=== PATIENT | female | born 1960 | race Caucasian/White ===

== ENCOUNTER 2016-11-10 09:44 | Outpatient (CLI) | payer SELFPAY | END 2016-11-10 09:45 | disposition home or self-care (01) | LOC: LAB 09:44 | DX: Z01.89 Encounter for other specified special examinations (principal) | CPT/HCPCS: 36415 ==

== ENCOUNTER 2017-06-09 14:07 | Outpatient (CLI) | payer OTHER ==
--- NOTE | 2017-06-09 17:56 | Ultrasound Report ---
RIGHT BREAST ULTRASOUND: 06/09/2017 CLINICAL INDICATION: Palpable abnormality right breast. TECHNIQUE: Real-time scanning was performed with renewals representative static images obtained. FINDINGS: Ultrasound of the palpable abnormality identified by the patient was performed. No discrete solid or cystic mass is identified. Incidental note is made of the punctate calcifications noted on mammogram. No associated mass is identified. No sonographically suspicious findings are seen. IMPRESSION: BENIGN FINDINGS. RECOMMENDATION: Routine annual screening unless otherwise clinically indicated. BIRADS category 2 benign findings. TD: 06/09/2017 17:50
--- NOTE | 2017-06-09 17:56 | Mammography Report ---
DIGITAL DIAGNOSTIC BILATERAL MAMMOGRAM: 06/09/2017 CLINICAL INDICATION: Palpable abnormality right outer breast. COMPARISON: 03/04/2016, 11/05/2014, 10/23/2012, 05/07/2011, 03/30/2010. TECHNIQUE: Bilateral CC, laterally exaggerated CC, MLO views, right true lateral view. A marker was placed at the site of palpable abnormality identified by the patient. FINDINGS: The breasts again demonstrate extremely dense parenchyma, limiting the sensitivity of mammography. Punctate, typically benign calcifications are stable in the right outer breast. No mammographic abnormality is appreciated at the site of palpable abnormality identified by the patient in the right lateral breast. Please also refer to right breast ultrasound of the same day. IMPRESSION: BENIGN FINDINGS. RECOMMENDATION: Routine annual screening unless otherwise clinically indicated. BIRADS category 2 benign findings. STANDARD QUALIFYING STATEMENTS 1. This examination was reviewed with the aid of Computed-Aided Detection (CAD) . 2. A negative or benign imaging report should not delay biopsy if clinically suspicious findings are present. Consider surgical consultation if warranted. More than 5 % of cancers are not identified by imaging. 3. Dense breasts may obscure an underlying neoplasm. TD: 06/09/2017 17:54 [email or web address]
== END 2017-06-09 14:08 | disposition home or self-care (01) ==
LOC: DI 14:07
PROVIDERS: ATTEND Internal Medicine
DX: R92.8 Other abnormal and inconclusive findings on diagnostic imaging of breast (principal)
CPT/HCPCS: 76642; 77066

== ENCOUNTER 2017-09-08 18:11 | Emergency (ER) | payer OTHER ==
--- NOTE | 2017-09-08 20:08 | XRAY Preliminary Report ---
Exam: XR HAND 3 VIEW LT IMPRESSION: Mildly displaced and angulated oblique fracture at the junction of the base and shaft of the proximal phalanx of the left fifth finger. [facility] SITE ID: [id number]
--- NOTE | 2017-09-08 20:08 | XRAY Report ---
EXAM: LEFT HAND RADIOGRAPHY EXAM DATE: 09/08/2017 07:49 PM. CLINICAL HISTORY: Hand injury. Fall, left fifth digit and metacarpal pain. Unable to remove ring. COMPARISON: None. TECHNIQUE: 4 views. FINDINGS: Ring on the fourth proximal phalanx. Bones: Acute oblique fracture at the junction of the base and shaft of the proximal phalanx of the le ft fifth finger with mild 2 mm ulnar displacement and mild dorsal angulation. Fifth metacarpal is int act. No lucent or sclerotic lesions. Joints: Normal. No subluxations. Soft Tissues: Normal. No soft tissue swelling. IMPRESSION: Mildly displaced and angulated oblique fracture at the junction of the base and shaft of the proximal phalanx of the left fifth finger. [facility] Referring Provider Line: [phone] SITE ID: [id number]
--- NOTE | 2017-09-08 20:45 | ED Physician Documentation ---
PD HPI UPPER EXT INJURY - Stated complaint Stated Complaint: Gayla GALVAN INJ - Chief complaint Chief Complaint: Ext Problem - History obtained from History obtained from: Patient - History of Present Illness Location: Left, Finger Type of injury: Fall Where injury occurred: Park Timing - details: Abrupt onset, Still present Worsened by: Moving, Palpating Similar symptoms before: Has not had sx before Recently seen: Not recently seen - Additonal information Additional information: patient is a 57 year old female with a history of parkinson's disease who is presenting to the emergency department for finger injury. patient was playing tennis and tripped on her feet and landed awkwardly on her hand injuring her fifth digit. 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 : None HEENT: None Psych: None Musculoskeletal: None Derm: None Other Past Medical History: [place] - Past Surgical History Past Surgical History: Yes - Present Medications Home Medications: Ambulatory Orders Medication Instructions Recorded Confirmed Carbidopa/Levodopa [Carbidopa-Levo 09/08/17 ER 25-100 Tab] Carbidopa/Levodopa [Carbidopa-Levo 09/08/17 ER 50-200 Tab] Carbidopa/Levodopa [Rytary ER 09/08/17 23.75 mg-95 mg Cap] Pramipexole [Mirapex] 09/08/17 Rasagiline [Azilect] 0.5 09/08/17 - Allergies Allergies/Adverse Reactions: Allergies Allergy/AdvReac Type Severity Reaction Status Date / Time prednisone Allergy Mild Anxiety Verified 09/08/17 18:35 - Social History Does the pt smoke?: No Smoking Status: Never smoker Does the pt drink ETOH?: No Does the pt have substance abuse?: No - Immunizations Immunizations are current?: Yes - POLST Patient has POLST: No PD ED PE NORMAL - Vitals Vital signs reviewed: Yes - General General: Alert and oriented X 3, No acute distress - HEENT HEENT: Atraumatic - Cardiac Cardiac: RRR - Respiratory Respiratory: No respiratory distress - Abdomen Abdomen: Non distended - Neuro Neuro: Alert and oriented X 3, Normal speech Eye Opening: Spontaneous PD ED PE EXPANDED - Extremities Extremities: Left finger(s) (tenderness, swelling and ecchymosis of base of 5th digit on left hand) Results - Vitals Vitals: Vital Signs - 24 hr 09/08/17 18:29 Temperature 36.9 C Heart Rate 60 Respiratory 15 Rate Blood Pressure 120/69 O2 Saturation 98 Oxygen O2 Source Room air - Rads (name of study) hand x-ray Radiology: Final report received (fracture, mildly displaced 5th digit left hand ) PD MEDICAL DECISION MAKING - ED course Complexity details: reviewed old records, reviewed results, re-evaluated patient , considered differential, d/w patient ED course: Patient was seen and examined at bedside. Patient had already been sent to x- ray. Films were reviewed and consistent with a mildly displaced fracture. Patient was placed in a splint by me. Patient required no further work up and was stable for discharge with outpatient follow up. Departure - Departure Disposition: Home, Self Care Clinical Impression: Finger fracture, left Condition: Good Instructions: ED Fx Finger Closed Follow-Up: Ti Rolle MD [Primary Care Provider] - Within 3 Days Shlomo Benito MD [Provider Admit Priv/Credential] - Comments: Your symptoms today are being caused by a finger fracture. It has been splinted and taped and you can wear that for comfort. You should ice your hand at least 4 times a day. You can take motrin and tylenol for pain. You can follow up with your doctor or doctor jang as needed. You may return to the emergency department at any time for new, worsening or uncontrollable symptoms.
[2017-09-08 21:08] VITALS: BP 118/90
== END 2017-09-08 21:01 | disposition home or self-care (01) ==
LOC: ED 18:11
DX: S62.617A Displaced fracture of proximal phalanx of left little finger, initial encounter for closed fracture (principal); W17.89XA Other fall from one level to another, initial encounter; Y92.830 Public park as the place of occurrence of the external cause; G20 Parkinson's disease
CPT/HCPCS: 29130; 99283

== ENCOUNTER 2018-06-13 14:37 | Outpatient (CLI) | payer OTHER ==
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
== END 2018-06-13 14:38 | disposition home or self-care (01) ==
LOC: DI 14:37
PROVIDERS: ATTEND Nurse Practitioner Primary Care
DX: Z12.31 Encounter for screening mammogram for malignant neoplasm of breast (principal)
CPT/HCPCS: 77067

== ENCOUNTER 2018-06-13 14:38 | Outpatient (CLI) | payer OTHER ==
--- NOTE | 2018-06-15 08:59 | DEXA Report ---
Reason: SCREENING FOR OSTEOPOROSIS, POSTMENOPAUSAL Procedure Date: 06/13/2018 Accession Number: [id number] / [id number] Procedure: DEX - Dexa Spine and/or Hip CPT Code: FULL RESULT: EXAM: Dexa Spine and/or Hip DATE: 06/13/2018 3:18 PM CLINICAL HISTORY: SCREENING FOR OSTEOPOROSIS, POSTMENOPAUSAL TECHNIQUE: Dual energy x-ray absorptiometry (DXA) was performed on a [employer] System. Regions measured are the AP Spine, femoral neck, and if needed forearm. COMPARISON: None. In accordance with the International Society for Clinical Densitometry (ISCD) guidelines, data from previous exams may be reanalyzed using current recommendations and techniques. This is done to allow a more accurate basis for comparison with the current study. FINDINGS: The data for the lumbar spine is as follows: BMD (g/cm/cm) T-SCORE Z-SCORE REGION L1 0.812 -2.7 -1.2 L2 0.868 -2.8 -1.3 L3 0.939 -2.2 -0.7 L4 1.113 -0.7 0.7 TOTAL 0.948 -1.9 -0.5 NOTE: All evaluable vertebrae are used for classification The data for the hip is as follows: BMD (g/cm/cm) T-SCORE Z-SCORE REGION Neck 0.790 -1.8 -0.4 TOTAL 0.781 -1.8 -0.7 NOTE: The femoral neck or total proximal femur, whichever is lowest, is used for classification. IMPRESSION: THE WHO CLASSIFICATION BASED ON THE INTERNATIONAL REFERENCE STANDARD IS OSTEOPENIA. THE FRACTURE RISK IS INCREASED. RECOMMENDATION: Patients with diagnosis of osteoporosis or osteopenia should have regular bone mineral density assessment. For those eligible for Medicare, routine testing is allowed once every 2 years. Testing frequency can be increased for patients who have rapidly progressing disease or for those who are receiving medical therapy to restore bone mass. COMMENT: World Health Organization (WHO) definitions for osteoporosis and osteopenia: NORMAL BMD: T-score at -1.0 or higher, fracture risk is low OSTEOPENIA BMD: T-score between -1.0 and -2.5, fracture risk is increased. OSTEOPOROSIS BMD: T-score at -2.5 or lower, fracture risk is high. National Osteoporosis Foundation recommends: 1. Obtain adequate dietary calcium (at least 1200 mg per day) and vitamin D (400-800 international units per day). 2. Participate, as appropriate, in regular weightbearing and muscle-strengthening exercise. 3. Avoid tobacco use and reduce alcohol and caffeine intake. 4. For more detailed information see the website at www.NOF.org.
== END 2018-06-13 14:39 | disposition home or self-care (01) ==
LOC: DI 14:38
PROVIDERS: ATTEND Nurse Practitioner Primary Care
DX: Z13.820 Encounter for screening for osteoporosis (principal); M85.89 Other specified disorders of bone density and structure, multiple sites; Z78.0 Asymptomatic menopausal state
CPT/HCPCS: 77080

== ENCOUNTER 2019-05-09 14:05 | Outpatient (CLI) | payer OTHER | END 2019-05-09 14:06 | disposition home or self-care (01) | LOC: NS 14:05 | PROVIDERS: ATTEND Family Medicine | DX: Z71.3 Dietary counseling and surveillance (principal); Z79.899 Other long term (current) drug therapy; M85.80 Other specified disorders of bone density and structure, unspecified site; G20 Parkinson's disease | CPT/HCPCS: 97802 ==

== ENCOUNTER 2019-08-14 08:00 | Outpatient (CLI) | payer OTHER ==
[2019-08-14 13:39] LABS: BASOPHILS % (AUTO) 0.6 %; EOSINOPHILS # (AUTO) 0.1 10^3/uL (0.0-0.7); EOSINOPHILS % (AUTO) 2.5 %; HGB - HEMOGLOBIN 13.3 g/dL (12.0-16.0); LYMPHOCYTES # (AUTO) 1.7 10^3/uL (1.5-3.5); LYMPHOCYTES % (AUTO) 46.5 %; MEAN CORPUSCULAR HEMOGLOBIN 30.3 pg (27.0-31.0); MEAN CORPUSCULAR HGB CONC 31.9 g/dL (32.0-36.0); MEAN PLATELET VOLUME 11.4 fL (7.9-10.8); MONOCYTES # (AUTO) 0.3 10^3/uL (0.0-1.0); MONOCYTES % (AUTO) 7.6 %; NEUTROPHILS # (AUTO) 1.5 10^3/uL (1.5-6.6); NEUTROPHILS % (AUTO) 42.8 %; PLT - PLATELET COUNT 196 10^3/uL (130-450); RED BLOOD COUNT 4.39 10^6/uL (4.20-5.40); RED CELL DISTRIBUTION WIDTH 12.9 % (12.0-15.0); WHITE BLOOD COUNT 3.6 x10^3/uL (4.8-10.8)
[2019-08-14 13:44] LABS: HB2 TOTAL 13.7 g/dL; HEMOGLOBIN A1C 0.57 g/dL
[2019-08-14 13:47] LABS: ALBUMIN 4.4 g/dL (3.2-5.5); ALBUMIN/GLOBULIN RATIO 1.9 (1.0-2.2); ALKALINE PHOSPHATASE 96 IU/L (42-121); ALT ALANINE AMINOTRANSFERASE < 10 IU/L (10-60); AST ASPARTATE AMINOTRANSFERASE 18 IU/L (10-42); BILIRUBIN,TOTAL 0.9 mg/dL (0.2-1.0); BUN - BLOOD UREA NITROGEN 17 mg/dL (6-20); CARBON DIOXIDE - CO2 27 mmol/L (21-32); CHLORIDE 104 mmol/L (101-111); CHOL/HDL RATIO 2.8 (<4.4); CHOLESTEROL 164 mg/dL; CREATININE 0.6 mg/dL (0.4-1.0); GLUCOSE 93 mg/dL (70-100); HDL CHOLESTEROL 59 mg/dL; LDL CHOLESTEROL,CALCULATED 97 mg/dL; LDL/HDL RATIO 1.6 (<4.4); SODIUM 138 mmol/L (135-145); TOTAL PROTEIN 6.7 g/dL (6.7-8.2); VLDL CHOLESTEROL 8 mg/dL
== END 2019-08-14 23:59 | disposition home or self-care (01) ==
LOC: LAB.WCP 08:00
PROVIDERS: ATTEND Nurse Practitioner
DX: E83.41 Hypermagnesemia (principal); R73.01 Impaired fasting glucose; E74.8 Other specified disorders of carbohydrate metabolism; Z13.29 Encounter for screening for other suspected endocrine disorder; G20 Parkinson's disease
CPT/HCPCS: 36415; 80053; 80061; 83036; 83721; 84443; 85025

== ENCOUNTER 2019-10-08 19:06 | Emergency (ER) | payer MEDICARE, OTHER ==
[2019-10-08] MEDS ORDERED: TETANUS/DIPHTHERIA/PERTUSSIS 0.5 ML SYRINGE IM ONE (19:31)
[2019-10-08] MEDS ORDERED: LIDOCAINE PATCH 5% TOP STA (19:31)
[2019-10-08] MEDS ORDERED: BACITRACIN ZINC OINT 1 PACKET TOP STA (19:32)
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
--- NOTE | 2019-10-08 20:17 | XRAY Report ---
PROCEDURE: Ribs w/PA Chest RT INDICATIONS: rib inj TECHNIQUE: 3 views of the right ribs were acquired, along with a single view chest. COMPARISON: None FINDINGS: Surgical changes and devices: None. Bones and chest wall: There is a minimally displaced lateral right seventh rib fracture. No suspici ous bony lesions. Overlying soft tissues appear unremarkable. Lungs and pleura: No pleural effusions or pneumothorax. Lungs appear clear. Mediastinum: Mediastinal contours appear normal. Heart size is normal. IMPRESSION: Minimally displaced lateral right seventh rib fracture. Reviewed by: Josi Caba MD on 10/08/2019 8:16 PM PDT Approved by: Josi Caba MD on 10/08/2019 8:16 PM PDT Station ID: [id number]
[2019-10-08 20:38] VITALS: BP 130/77
== END 2019-10-08 20:37 | disposition home or self-care (01) ==
LOC: ED 19:06
DX: S22.31XA Fracture of one rib, right side, initial encounter for closed fracture (principal); S60.512A Abrasion of left hand, initial encounter; S60.511A Abrasion of right hand, initial encounter; S50.811A Abrasion of right forearm, initial encounter; V18.0XXA Pedal cycle driver injured in noncollision transport accident in nontraffic accident, initial encounter; Y93.55 Activity, bike riding; Z23 Encounter for immunization; G20 Parkinson's disease
CPT/HCPCS: 71101; 90471; 90715; 99283; 99284; A9270

== ENCOUNTER 2020-02-05 13:45 | Outpatient (CLI) | payer MEDICARE, OTHER ==
--- NOTE | 2020-02-06 12:02 | Mammography Report ---
BILATERAL DIGITAL SCREENING MAMMOGRAM: 02/05/2020 CLINICAL: Family history of breast cancer. Routine screening. Comparison is made to exams dated: 06/13/2018 mammogram, 06/09/2017 mammogram, 03/04/2016 mammogram, a nd 06/09/2017 ultrasound - [facility]. The tissue of both breasts is extremely dens e, which lowers the sensitivity of mammography. No significant masses, calcifications, or other findings are seen in either breast. There has been no significant interval change. IMPRESSION: NEGATIVE There is no mammographic evidence of malignancy. A 1 year screening mammogram is recommended. This exam was interpreted at Station ID: [id number]. NOTE: For mammograms, a report in lay terms will be sent to the patient. Approximately 15% of breast malignancies will not be visualized mammographically. In the management of a palpable breast mass, a negative mammogram must not discourage biopsy of a clinically suspicious lesion. Electronically Signed By: Alan Anderson M.D. ar/penrad:02/05/2020 17:34:45 ACR BI-RADS Category 1: Negative 3341F PARENCHYMAL PATTERN: (VD) - The breast(s) demonstrate(s) extremely dense parenchyma, limiting the sen sitivity of mammography. BI-RADS CATEGORY: (1) - 1 RECOMMENDATION: (ANNUAL) - Recommend routine annual screening mammography. [id number] 1 year screening LATERALITY: (B)
== END 2020-02-05 13:46 | disposition home or self-care (01) ==
LOC: DI.N 13:45
PROVIDERS: ATTEND Nurse Practitioner
DX: Z12.31 Encounter for screening mammogram for malignant neoplasm of breast (principal); Z80.3 Family history of malignant neoplasm of breast
CPT/HCPCS: 77067

== ENCOUNTER 2021-02-03 11:22 | Outpatient (CLI) | payer MEDICARE ==
[2021-02-03 18:12] LABS: BASOPHILS % (AUTO) 0.9 %; EOSINOPHILS # (AUTO) 0.2 10^3/uL (0.0-0.7); HCT - HEMATOCRIT 43.7 % (37.0-47.0); HGB - HEMOGLOBIN 13.8 g/dL (12.0-16.0); MEAN CORPUSCULAR HEMOGLOBIN 30.5 pg (27.0-31.0); MEAN CORPUSCULAR HGB CONC 31.6 g/dL (32.0-36.0); MEAN CORPUSCULAR VOLUME 96.5 fL (81.0-99.0); MEAN PLATELET VOLUME 11.2 fL (7.9-10.8); MONOCYTES # (AUTO) 0.4 10^3/uL (0.0-1.0); MONOCYTES % (AUTO) 8.7 %; NEUTROPHILS # (AUTO) 1.9 10^3/uL (1.5-6.6); NEUTROPHILS % (AUTO) 42.2 %; PLT - PLATELET COUNT 222 10^3/uL (130-450); RED BLOOD COUNT 4.53 10^6/uL (4.20-5.40); RED CELL DISTRIBUTION WIDTH 13.1 % (12.0-15.0); WHITE BLOOD COUNT 4.5 x10^3/uL (4.8-10.8)
[2021-02-03 18:35] LABS: ALBUMIN 4.6 g/dL (3.2-5.5); ALBUMIN/GLOBULIN RATIO 1.8 (1.0-2.2); ALKALINE PHOSPHATASE 115 IU/L (42-121); ALT ALANINE AMINOTRANSFERASE < 10 IU/L (10-60); AST ASPARTATE AMINOTRANSFERASE 17 IU/L (10-42); BILIRUBIN,TOTAL 0.9 mg/dL (0.2-1.0); BUN - BLOOD UREA NITROGEN 19 mg/dL (6-20); CALCIUM 9.5 mg/dL (8.5-10.3); CARBON DIOXIDE - CO2 27 mmol/L (21-32); CHLORIDE 99 mmol/L (101-111); CHOL/HDL RATIO 2.6 (<4.4); CHOLESTEROL 177 mg/dL; CREATININE 0.7 mg/dL (0.4-1.0); GFR - MDRD 85 (>89); GLUCOSE 104 mg/dL (70-100); HDL CHOLESTEROL 69 mg/dL; LDL CHOLESTEROL,CALCULATED 89 mg/dL; LDL/HDL RATIO 1.3 (<4.4); POTASSIUM 4.1 mmol/L (3.5-5.0); SODIUM 134 mmol/L (135-145); TOTAL PROTEIN 7.1 g/dL (6.7-8.2); TRIGLYCERIDES 97 mg/dL; VLDL CHOLESTEROL 19 mg/dL
[2021-02-03 18:41] LABS: THYROID STIMULATING HORMONE 1.7 uIU/mL (0.34-5.60)
[2021-02-03 20:19] LABS: ESTIMATED AVERAGE GLUCOSE 128 mg/dL (70-100); HEMOGLOBIN A1c% 6.1 % (4.27-6.07)
== END 2021-02-03 11:23 | disposition home or self-care (01) ==
LOC: LAB.N 11:22
PROVIDERS: ATTEND Family Medicine
DX: Z00.00 Encounter for general adult medical examination without abnormal findings (principal)
CPT/HCPCS: 36415; 80053; 80061; 83036; 83721; 84443; 85025

== ENCOUNTER 2021-02-12 08:00 | Outpatient (CLI) | payer MEDICARE ==
[2021-02-23 19:54] LABS: FECAL OCCULT BLOOD (FIT) NEGATIVE (NEGATIVE)
== END 2021-02-12 23:59 | disposition home or self-care (01) ==
LOC: LAB.R 08:00
PROVIDERS: ATTEND Family Medicine
DX: Z12.11 Encounter for screening for malignant neoplasm of colon (principal)
CPT/HCPCS: 82274

== ENCOUNTER 2021-03-26 15:43 | Outpatient (CLI) | payer MEDICARE ==
--- NOTE | 2021-03-26 16:57 | XRAY Report ---
PROCEDURE: Chest 2 View X-Ray INDICATIONS: COUGH / PARKINSONS TECHNIQUE: 2 view(s) of the chest. COMPARISON: CXR 08/08/2015. FINDINGS: Surgical changes and devices: None. Lungs and pleura: No pleural effusions or pneumothorax. Lungs are clear. Mediastinum: Mediastinal contours are normal. Heart size is normal. Bones and chest wall: No suspicious bony abnormalities. Soft tissues appear unremarkable. IMPRESSION: No acute cardiopulmonary abnormality. Reviewed by: Wolf Galvan MD on 03/26/2021 4:56 PM PST Approved by: Wolf Galvan MD on 03/26/2021 4:56 PM [facility] Station ID: [id number]
--- NOTE | 2021-03-26 22:10 | XRAY Report ---
PROCEDURE: Wrist 3 View LT INDICATIONS: LEFT WRIST JOINT PAIN TECHNIQUE: 3 views of the wrist were acquired. COMPARISON: None FINDINGS: Bones: Acute slightly impacted fracture through distal radial shaft is seen without significant displ acement or angulation of fracture site. Old ulnar styloid fracture is seen with well-corticated fragm ent. Mild wrist joint osteoarthritic changes are seen. No suspicious bony lesions. Scaphoid view: Scaphoid is intact. Soft tissues: No suspicious soft tissue calcifications. IMPRESSION: Acute slightly impacted distal radial shaft fracture as above. Wrist joint osteoarthritis. No disloca tion. Reviewed by: Blaise Tran MD on 03/26/2021 10:08 PM PST Approved by: Blaise Tran MD on 03/26/2021 10:08 PM PST Station ID: [id number]
== END 2021-03-26 15:44 | disposition home or self-care (01) ==
LOC: DI.N 15:43
PROVIDERS: ATTEND Family Medicine
DX: R05.9 Cough, unspecified (principal); G20 Parkinson's disease; S52.302A Unspecified fracture of shaft of left radius, initial encounter for closed fracture; M19.032 Primary osteoarthritis, left wrist

== ENCOUNTER 2021-04-28 13:16 | Outpatient (CLI) | payer MEDICARE ==
--- NOTE | 2021-04-28 16:26 | XRAY Report ---
PROCEDURE: Wrist 3 View RT INDICATIONS: WRIST FX F/U TECHNIQUE: 3 views of the wrist were acquired. COMPARISON: X-ray wrist 03/26/2021 FINDINGS: Bones: There is a comminuted, impacted distal radial fracture without gross intra-articular extension . There has been interval sclerosis consistent with healing although fracture lucencies persist. Ther e is slight dorsal displacement of the distal fragment, new compared to prior exam Soft tissues: No suspicious soft tissue calcifications. IMPRESSION: Interval healing with new slight dorsal displacement of the distal fragment of distal radial fracture , Reviewed by: Josi Caba MD on 04/28/2021 4:25 PM PST Approved by: Josi Caba MD on 04/28/2021 4:25 PM PST Station ID: [id number]
== END 2021-04-28 13:17 | disposition home or self-care (01) ==
LOC: DI.WOS 13:16
PROVIDERS: ATTEND Orthopaedic Surgery
DX: S52.531D Colles' fracture of right radius, subsequent encounter for closed fracture with routine healing (principal)

== ENCOUNTER 2021-05-19 14:17 | Outpatient (CLI) | payer BC ==
--- NOTE | 2021-05-19 17:28 | XRAY Report ---
PROCEDURE: Wrist 3 View RT INDICATIONS: F/U RIGHT WRIST FX TECHNIQUE: 3 views of the wrist were acquired. COMPARISON: X-ray of the right wrist, 04/28/2021 and 03/26/2021. FINDINGS: Bones: There is a healing fracture of the distal radial metaphysis is mild impaction. The alignment i s stable. Old ulnar styloid fracture is again noted. No suspicious bony lesions. Soft tissues: No suspicious soft tissue calcifications. IMPRESSION: Healing distal radial metaphyseal fracture with stable alignment. Reviewed by: Faustina Sharpe MD on 05/19/2021 5:26 PM PST Approved by: Faustina Sharpe MD on 05/19/2021 5:26 PM PST Station ID: [id number]
== END 2021-05-19 14:18 | disposition home or self-care (01) ==
LOC: DI.WOS 14:17
PROVIDERS: ATTEND Physician Assistant
DX: S52.531D Colles' fracture of right radius, subsequent encounter for closed fracture with routine healing (principal)

== ENCOUNTER 2021-07-02 10:23 | Outpatient (CLI) | payer BC ==
--- NOTE | 2021-07-03 10:12 | Mammography Report ---
BILATERAL DIGITAL SCREENING MAMMOGRAM 3D/2D: 07/02/2021 CLINICAL: Family history of breast cancer. Routine screening. Comparison is made to exams dated: 02/05/2020 mammogram, 06/13/2018 mammogram, and 06/09/2017 mammogra m - [facility]. The tissue of both breasts is extremely dense, which lowers the se nsitivity of mammography. No significant masses, calcifications, or other findings are seen in either breast. There has been no significant interval change. IMPRESSION: NEGATIVE There is no mammographic evidence of malignancy. A 1 year screening mammogram is recommended. This exam was interpreted at Station ID: [id number]. NOTE: For mammograms, a report in lay terms will be sent to the patient. Approximately 15% of breast malignancies will not be visualized mammographically. In the management of a palpable breast mass, a negative mammogram must not discourage biopsy of a clinically suspicious lesion. Electronically Signed By: Alan Anderson M.D. ar/penrad:07/02/2021 11:13:00 ACR BI-RADS Category 1: Negative 3341F PARENCHYMAL PATTERN: (VD) - The breast(s) demonstrate(s) extremely dense parenchyma, limiting the sen sitivity of mammography. BI-RADS CATEGORY: (1) - 1 RECOMMENDATION: (ANNUAL) - Recommend routine annual screening mammography. [id number] 1 year screening LATERALITY: (B)
== END 2021-07-02 10:24 | disposition home or self-care (01) ==
LOC: DI.N 10:23
DX: Z12.31 Encounter for screening mammogram for malignant neoplasm of breast (principal); Z80.3 Family history of malignant neoplasm of breast

== ENCOUNTER 2021-08-17 06:00 | Outpatient (CLI) | payer MEDICARE ==
--- NOTE | 2021-08-17 15:10 | XRAY Report ---
PROCEDURE: Wrist 3 View RT INDICATIONS: WRIST FRACTURE TECHNIQUE: 3 views of the wrist were acquired. COMPARISON: Right wrist radiographs 05/19/2021, 04/28/2021, 03/26/2021. FINDINGS: Bones: Distal radius fracture line is no longer seen. There is essentially anatomic alignment. No dis location. Ulnar styloid fracture. No suspicious bony lesions. Soft tissues: No suspicious soft tissue calcifications. IMPRESSION: Distal radius fracture line is no longer seen. This is consistent with healing. Prior ulnar styloid fracture. Reviewed by: Wolf Galvan MD on 08/17/2021 3:08 PM PDT Approved by: Wolf Galavn MD on 08/17/2021 3:08 PM PDT Station ID: [id number]
== END 2021-08-17 23:59 | disposition home or self-care (01) ==
LOC: DI.WOS 06:00
PROVIDERS: ATTEND Physician Assistant
DX: S52.531D Colles' fracture of right radius, subsequent encounter for closed fracture with routine healing (principal)

== ENCOUNTER 2021-11-17 15:36 | Emergency (ER) | payer MEDICARE ==
[2021-11-17 15:51] VITALS: BP 127/89
--- NOTE | 2021-11-17 16:51 | XRAY Report ---
PROCEDURE: Hand 3 View LT INDICATIONS: Possible fracture TECHNIQUE: 3 views of the hand(s) acquired. COMPARISON: None FINDINGS: Bones: No fractures or dislocations. Mild to moderate osteoarthritic changes are noted throughout monk nd and wrist joints. No gross bony erosive changes. No suspicious bony lesions. Soft tissues: No suspicious soft tissue calcifications. IMPRESSION: No left hand fracture or dislocation. 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 No d efinite bony erosive changes. Reviewed by: Blaise Ocampo MD on 11/17/2021 3:50 PM [facility] Approved by: Blaise Ocampo MD on 11/17/2021 3:50 PM [facility] Station ID: [id number]
--- NOTE | 2021-11-17 16:57 | ED Physician Documentation ---
PD HPI UPPER EXT INJURY - Stated complaint Stated Complaint: HAND LAC - Chief complaint Chief Complaint: Laceration - History obtained from History obtained from: Patient - History of Present Illness Location: Left - Additonal information Additional information: 61-year-old female history of Parkinson's presents for evaluation of hand injury that occurred yesterday. Patient states that she was at home when she slipped, landing on her hand. She states that her fingers were bent out of place, and she was able to pull them back into place. Today her fingers are more swollen and she initially went to a urgent care clinic, however due to the extensive swelling in her ring and middle finger she was referred to the ER. Unknown last tetanus shot. Incident happened at approximately 1500 yesterday. Did not hit head. 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 : Incontinence, Nocturia, Kidney stones HEENT: None Psych: None Musculoskeletal: None Derm: None - Past Surgical History Past Surgical History: Yes General: Other - Present Medications Home Medications: Ambulatory Orders Medication Instructions Recorded Confirmed Carbidopa/Levodopa [Carbidopa-Levo 1 each PO DAILY PM PRN 09/08/17 02/21/18 ER 50-200 Tab] Carbidopa/Levodopa [Rytary ER 1 - 4 each PO DAILY 09/08/17 02/21/18 23.75 mg-95 mg Cap] Pramipexole [Mirapex] 0.75 mg PO DAILY 09/08/17 02/21/18 Rasagiline [Azilect] 0.75 mg PO DAILY 09/08/17 02/21/18 Carbidopa/Levodopa 1 tab PO Q1HR 02/15/18 02/21/18 [Carbidopa-Levodopa 25-100 Tab] Zolpidem [Ambien] 5 mg PO HS 02/21/18 02/21/18 Bacitracin Zinc Oint 1 applic TOP BID #1 tube 06/22/20 Lidocaine Patch 5% [Lidoderm Patch] 1 patch TOP DAILY PRN #10 patch 10/08/19 - Allergies Allergies/Adverse Reactions: Allergies Allergy/AdvReac Type Severity Reaction Status Date / Time prednisone Allergy Mild Anxiety Verified 11/17/21 15:50 - Social History Does the pt smoke?: No Smoking Status: Never smoker Does the pt drink ETOH?: No Does the pt have substance abuse?: No - Immunizations Immunizations are current?: Yes - POLST Patient has POLST: No PD ED PE NORMAL - Vitals Vital signs reviewed: Yes - General General: Alert and oriented X 3, No acute distress, Well developed/nourished - HEENT HEENT: Atraumatic, PERRL, EOMI, Ears normal, Moist mucous membranes, Pharynx benign - Neck Neck: Supple, no meningeal sign, No bony TTP, C-Spine cleared by NEXUS criteria - Cardiac Cardiac: RRR, No murmur, Strong equal pulses - Respiratory Respiratory: No respiratory distress, Clear bilaterally - Abdomen Abdomen: Soft, Non tender, Non distended - Back Back: No CVA TTP, No spinal TTP - Derm Derm: Normal color, Warm and dry - Extremities Extremities: Other (swelling L ring and middle finger. 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 Patient has swelling to her ring finger as well as a wedding ring in place. This wedding band was unable to be removed and so it was cut. Wound is greater than 24 hours old, will treat conservatively. It was irrigated by nursing staff and merle tape was applied to the fingers. Departure - Departure Disposition: 01 Home, Self Care Clinical Impression: Finger sprain, Finger laceration Condition: Stable Instructions: ED Laceration Small Superf No Sutr Comments: You are seen today for finger sprain of your middle and ring fingers. At this time there does not appear to be any fracture or dislocation present. You are being placed in merle tape, which should remain in place for several days. Take Tylenol and Motrin as needed for pain or swelling. Please apply ice as needed to your fingers for swelling. Your tetanus shot was last updated in 2019, you do not need an update today. Discharge Date/Time: 11/17/21 17:11
== END 2021-11-17 17:11 | disposition home or self-care (01) ==
LOC: ED 15:36
DX: S63.615A Unspecified sprain of left ring finger, initial encounter (principal); W01.0XXA Fall on same level from slipping, tripping and stumbling without subsequent striking against object, initial encounter
CPT/HCPCS: 99282; 99283

== ENCOUNTER 2022-03-30 13:58 | Outpatient (CLI) | payer MEDICARE ==
--- NOTE | 2022-03-30 18:55 | XRAY Report ---
PROCEDURE: Shoulder 3 View LT INDICATIONS: L SHOULDER PX TECHNIQUE: 3 views of the shoulder were acquired. COMPARISON: None. FINDINGS: Bones: Transverse fracture through the distal clavicle noted with impaction and slight remodeling of the fracture lines. Left lung apex clear. No pneumothorax. Glenohumeral joint unremarkable. Soft tissues: No suspicious soft tissue calcifications. IMPRESSION: Comminuted nondisplaced distal left clavicular fracture Reviewed by: Sriram Campbell MD on 03/30/2022 5:54 PM [place] Approved by: Sriram Campbell MD on 03/30/2022 5:54 PM AKST Station ID: [id number]
== END 2022-03-30 13:59 | disposition home or self-care (01) ==
LOC: DI.N 13:58
PROVIDERS: ATTEND Physician Assistant
DX: S42.032A Displaced fracture of lateral end of left clavicle, initial encounter for closed fracture (principal)

== ENCOUNTER 2023-07-06 16:46 | Emergency (ER) | payer MEDICARE ==
[2023-07-06 17:02] VITALS: BP 133/98
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
[2023-07-06 17:21] VITALS: O2SAT 96
--- NOTE | 2023-07-06 17:33 | XRAY Report ---
PROCEDURE: Shoulder 2+V LT INDICATIONS: fall 1 wk ago, pain and limited movement since TECHNIQUE: 3 views of the shoulder were acquired. COMPARISON: Left clavicle radiographs 06/11/2022, 05/07/2022. Left shoulder radiographs 04/08/2022. FINDINGS: Bones: Fracture at the lateral acromion. Mild this placement of the fracture fragment. Healed the di stal clavicle fracture. No dislocations. No suspicious bony lesions. Visualized ribs appear intact. Soft tissues: No suspicious soft tissue calcifications. The visualized lungs are within normal limi ts. IMPRESSION: Fracture at the lateral acromion. Reviewed by: Wolf Galvan MD on 07/06/2023 5:31 PM PDT Approved by: Wolf Galvan MD on 07/06/2023 5:31 PM PDT Station ID: [id number]
== END 2023-07-06 17:39 | disposition home or self-care (01) ==
LOC: ED 16:46
DX: S42.292A Other displaced fracture of upper end of left humerus, initial encounter for closed fracture (principal); V19.9XXA Pedal cyclist (driver) (passenger) injured in unspecified traffic accident, initial encounter; Y93.55 Activity, bike riding; Y92.828 Other wilderness area as the place of occurrence of the external cause; G20.C Parkinsonism, unspecified; Z79.899 Other long term (current) drug therapy
CPT/HCPCS: 99283; 99284

== ENCOUNTER 2023-12-03 09:30 | Emergency (ER) | payer MEDICARE ==
--- NOTE | 2023-12-03 10:06 | ED Physician Documentation ---
PD HPI LOWER EXT INJURY - Stated complaint Stated Complaint: GLF, LT LEG INJURY - Chief complaint Chief Complaint: Trauma Ext - History obtained from History obtained from: Patient - History of Present Illness PD HPI LOW EXT INJURY LOCATION: Left, Hip (and posterior aspect around SI area and ramus.) Type of injury: Fall (4 days ago, with twisting of left hip more than impact per se. Has had pain with ROM and pivoting walking. has Parkinsons with a lot of spasms baseline, and the current injury has precipitated more spasms in legs cassius.), Twist Where injury occurred: Home Timing - onset: How many days ago (4) Worsened by: Moving. 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 : Incontinence, Nocturia, Kidney stones HEENT: None Psych: None Musculoskeletal: None Derm: None - Past Surgical History Past Surgical History: Yes General: Other - Present Medications Home Medications: Ambulatory Orders Medication Instructions Recorded Confirmed Carbidopa/Levodopa [Carbidopa-Levo 1 each PO DAILY PM PRN 09/08/17 07/06/23 ER 50-200 Tab] Pramipexole [Mirapex] 0.75 mg PO DAILY 09/08/17 07/06/23 Carbidopa/Levodopa 1 tab PO Q1HR 02/15/18 07/06/23 [Carbidopa-Levodopa 25-100 Tab] Zolpidem [Ambien] 5 mg PO HS 02/21/18 07/06/23 amantadine HCL [Gocovri] 1 - 2 tab PO HS 07/06/23 07/06/23 HYDROcod/ACETAM 5/325 [[place] 5/325] 1 ea PO Q8H PRN #14 tablet 12/03/23 Lidocaine 4 % TP DAILY PRN #10 patch 12/03/23 Meloxicam [Mobic] 7.5 mg PO BID 10 Days #20 tablet 12/03/23 tiZANidine [Zanaflex] 4 mg PO Q8H PRN #25 tablet 12/03/23 - Allergies Allergies/Adverse Reactions: Allergies Allergy/AdvReac Type Severity Reaction Status Date / Time prednisone Allergy Mild Anxiety Verified 12/03/23 09:44 - Social History Does the pt smoke?: No Smoking Status: Never smoker Does the pt drink ETOH?: No Does the pt have substance abuse?: No - Immunizations Immunizations are current?: Yes - POLST Patient has POLST: No PD ED PE NORMAL - Vitals Vital signs reviewed: Yes - General General: Alert and oriented X 3, Well developed/nourished, Other (continual movement with choreoid type movements c/w Parkinsons. Left hip and SI/posterior pelvic area.) - Abdomen Abdomen: Soft, Non tender - Back Back: Other (pain with hip flexion against resistance mostly. And with regular flexion and external rotation.) - Derm Derm: Normal color, Warm and dry Results - Vitals Vitals: Vital Signs - 24 hr 12/03/23 12/03/23 09:44 12:12 Temperature 36.4 C L 36.4 C L Heart Rate 101 H 97 Respiratory 16 16 Rate Blood Pressure 135/92 H 135/89 H O2 Saturation 99 99 Oxygen O2 Source Room air - Rads (name of study) pelvic CT Relevant Findings:: Prelim report reviewed, EMP independent interpretation of te st (no noted fractures. ) PD Medical Decision Making - ED course Complexity details: reviewed results (no fractures. Presume myofascial and her psoas is suspicious given character of the pain. No hematoma seen by radioloty.), considered differential (pain in pelvis/posterior hip and not ball and socket it self. ), d/w patient Departure - Departure Disposition: 01 Home, Self Care Clinical Impression: Psoas muscle strain, Hip pain, acute Condition: Stable Record reviewed to determine appropriate education?: Yes Instructions: ED Sprain Hip Follow-Up: BLAIR W[place] DO [Primary Care Provider] - Prescriptions: Lidocaine 4 % TP DAILY PRN #10 patch PRN Reason: Pain 1-4 Meloxicam [Mobic] 7.5 mg PO BID 10 Days #20 tablet HYDROcod/ACETAM 5/325 [[place] 5/325] 1 ea PO Q8H PRN #14 tablet PRN Reason: Pain tiZANidine [Zanaflex] 4 mg PO Q8H PRN #25 tablet PRN Reason: Spasms Comments: The CT scan of your pelvis does not show any fractures. The character and symptoms of your pains sound likely to be a strain of the psoas muscle. We can do a combination of some anti-inflammatories along with lidocaine patch in the area. To that add Tylenol 500 to 650 mg 4 times daily for pain. Given your spasms with this, we can also try tizanidine muscle relaxant and see if that is helpful. In addition, particularly at night for sleep etc., if he needed an added pain medicine of hydrocodone/acetaminophen, that may allow better sleep and decrease spasming as well. I sent new prescriptions to preferred pharmacy. Follow-up with your primary care or your neurologist etc. if needed if not improving on the muscle strain and also with regard to your spasms. Forms: PCP List Discharge Date/Time: 12/03/23 12:13
[2023-12-03 10:15] VITALS: O2SAT 99
[2023-12-03] MEDS: NAPROXEN 250 MG TABLET PO STA (10:41)
--- NOTE | 2023-12-03 11:32 | CT Report ---
PROCEDURE: Pelvis WO INDICATIONS: fall, twist. left hip/SI/ramus area TECHNIQUE: Noncontrast 3 mm axial sections acquired through the bony pelvis, with coronal and sagittal reformatt ing. For radiation dose reduction, the following was used: automated exposure control, adjustment of mA and/or kV according to patient size. COMPARISON: None. FINDINGS: Degenerative disc disease and arthropathy in the lower lumbar spine associated with grade 2 anterior spinal listhesis L4-5. No lytic or blastic lesions. Pelvic ring is intact. No evidence of fracture. Both proximal femurs unremarkable. Sacral bones unrem arkable IMPRESSION: No evidence of fracture or traumatic injury in the pelvis and sacrum. Lower lumbar spine degenerative disc disease and arthropathy associated with grade 2 anterior spondylolisthesis L4-5 Reviewed by: Sriram Campbell MD on 12/03/2023 10:30 AM [place] Approved by: Sriram Campbell MD on 12/03/2023 10:30 AM AKDT Station ID: [id number]
[2023-12-03 12:13] VITALS: BP 135/89
== END 2023-12-03 12:13 | disposition home or self-care (01) ==
LOC: ED 09:30
DX: S76.012A Strain of muscle, fascia and tendon of left hip, initial encounter (principal); W19.XXXA Unspecified fall, initial encounter
CPT/HCPCS: 72192; 99284; A9270